=== PATIENT | male | born 1975 | race Caucasian/White ===

== ENCOUNTER 2021-02-08 17:24 | Emergency (ER) | payer SELFPAY ==
[~2021-02-08] VITALS: Ht 172.7 cm; Wt 108.0 kg
[~2021-02-08 17:24] MED LIST: ALTEPLASE 81 MG in WATER FOR INJECTION,STERILE 81 ML IV ONE
--- NOTE | 2021-02-08 17:26 | NUR ---
[id number] for r sided weakness, unable to move extremity. admits to drinking today. Patient a/ox3, verbally responsive. Dr. Pastor at bedside. Patient connected to registered nurse cardiac telemetry.
--- NOTE | 2021-02-08 17:35 | NUR ---
CODE STROKE ACTIVATED
[2021-02-08 17:43] LABS: BASOPHILS % (AUTO) 0.3 % (0.0-2.0); EOSINOPHILS % (AUTO) 0.1 % (0.0-6.0); HEMATOCRIT 51 % (39-51); LYMPHOCYTES # (AUTO) 1.1 K/uL (0.8-4.8); LYMPHOCYTES % (AUTO) 8.3 % (20.0-44.0); MEAN CORPUSCULAR HGB CONC 34 g/dl (31.0-36.0); MEAN CORPUSCULAR VOLUME 90 fL (80-96); MONOCYTES # (AUTO) 1.1 K/uL (0.1-1.30); MONOCYTES % (AUTO) 8.8 % (2.0-12.0); NEUTROPHILS # (AUTO) 10.5 K/uL (1.8-8.9); NEUTROPHILS % (AUTO) 82.5 % (43.0-81.0); PLATELET COUNT (AUTO) 212 K/uL (150-450); RED BLOOD CELL COUNT(AUTO) 5.61 MIL/uL (4.5-6.0); WHITE BLOOD COUNT (AUTO) 12.7 K/uL (4.3-11.0)
--- NOTE | 2021-02-08 17:45 | NUR ---
DR. ZULETA SPEAKING WITH TELE NEUROLOGIST DR. Sarbjit LOPEZ.
--- NOTE | 2021-02-08 17:45 | NUR ---
NIHSS SCORE IS 6.
[2021-02-08 17:54] LABS: CALCIUM, SERUM 9.5 mg/dL (8.5-10.1); CARBON DIOXIDE 25 mmol/L (21-32); CHLORIDE 100 mmol/L (98-107); CREATININE 1.9 mg/dL (0.6-1.3); GLUCOSE 168 mg/dL (74-106); POTASSIUM 3.9 mmol/L (3.5-5.1); SODIUM SERUM 140 mmol/L (136-145); UREA NITROGEN, BLOOD 21 mg/dL (7-18)
[2021-02-08] MEDS ORDERED: LABETALOL HCL IV 100MG VIAL ONE (17:55)
[2021-02-08] MEDS ORDERED: ALTEPLASE 100 MG/VIAL VIAL IV ONE (18:00)
[2021-02-08] MEDS ORDERED: LABETALOL 20 MG/4 ML VIAL IV ONE (18:00)
--- NOTE | 2021-02-08 18:01 | NUR ---
PATIENT AGREED WITH A TPA, SIGNED A CONSENT, EXPLAINED BY DR. ZULETA AND TELE NEUROLOGIST.
--- NOTE | 2021-02-08 18:05 | NUR ---
CALLED [facility] [phone] DENISE
--- NOTE | 2021-02-08 18:09 | NUR ---
FAXED FACE SHEET AND TRIAGE NOTES TO [phone] DENISE
[2021-02-08] MEDS ORDERED: ALTEPLASE BOLUS DOSE IV ONE (18:12)
--- NOTE | 2021-02-08 18:13 | NUR ---
CALLED [facility] FOR DR. LOPEZ TO CALL US BACK.
--- NOTE | 2021-02-08 18:15 | NUR ---
CALLED [facility] [phone] DENISE SPEAKING WITH SHER PHAN.
--- NOTE | 2021-02-08 18:17 | NUR ---
DR. LOPEZ SPEAKING WITH DR. ZULETA
--- NOTE | 2021-02-08 18:20 | NUR ---
DR. ZULETA AT BEDSIDE EXPLAINED TO PATIENT RISKS AND BENEFITS OF CTA BRAIN AND NECK. PATIENT AGREED AND VERBALIZED UNDERSTANDING.
--- NOTE | 2021-02-08 18:21 | NUR ---
TPA INFUSING AT THIS TIME. NO S/SX OF ADVERSE REACTION NOTED.
--- NOTE | 2021-02-08 18:24 | NUR ---
PASSED SWALLOW EVAL.
[2021-02-08] MEDS ORDERED: IOHEXOL-350 100 ML VIAL IV ONE ×2 (18:28→19:04)
[2021-02-08] MEDS ORDERED: IV NS 0.9% 250 ML IV ONE ×2 (18:28→19:04)
[2021-02-08] MEDS ORDERED: IV NS 0.9% 500 ML BAG IV ONE (18:30)
--- NOTE | 2021-02-08 18:44 | NUR ---
PATIENT CAME BACK FROM RADIOLOGY, IN STABLE CONDITION. TPA STILL INFUSING AT THIS TIME.
--- NOTE | 2021-02-08 18:55 | NUR ---
MOTHER JUDITH [phone]
--- NOTE | 2021-02-08 19:06 | NUR ---
DR. LOVETT FROM [facility] WITH DR. ZULETA.
--- NOTE | 2021-02-08 19:15 | NUR ---
covid swab collected and sent to lab.
[2021-02-08 19:20] VITALS: BP 156/104
--- NOTE | 2021-02-08 19:45 | NUR ---
PT WAS TRANSFERRED TO [facility] UNDER CCT PROTOCOL
--- NOTE | 2021-02-08 19:46 | NUR ---
CALLED [facility] [place] [phone] DR[address] ZULETA SPEAKING WITH CARMEL.
--- NOTE | 2021-02-08 19:53 | NUR ---
PATIENT BEING TRANSFERRED TO [facility] ICU ROOM 2224
--- NOTE | 2021-02-08 19:53 | NUR ---
REPORT GIVEN TO SHER NAJERA AT [facility]
== END 2021-02-08 19:56 | disposition short-term general hospital (02) ==
LOC: ER 17:43
DX: I63.89 Other cerebral infarction (principal); G81.91 Hemiplegia, unspecified affecting right dominant side; R29.706 NIHSS score 6; I26.99 Other pulmonary embolism without acute cor pulmonale; Z20.822 Contact with and (suspected) exposure to COVID-19; N17.9 Acute kidney failure, unspecified; R73.9 Hyperglycemia, unspecified; I16.0 Hypertensive urgency; D72.829 Elevated white blood cell count, unspecified
CPT/HCPCS: 36415; 70450; 70496; 70498; 71045; 71275; 72125; 80048; 82962; 84484; 85025; 85730; 87426; 93005; 96365; 96375; 99291; C9803; J2997; J3490; J7030; J7040; J7050 ×2; Q9967 ×2